=== PATIENT | female | born 1985 | race Hispanic/Latino ===

== ENCOUNTER 2024-08-28 21:12 | Emergency (ER) | payer BC ==
[~2024-08-28] VITALS: Ht 162.6 cm; Wt 72.1 kg
[2024-08-28 21:15] VITALS: PULSE 97; RESP 18; TEMP 97.6
[2024-08-28] MEDS ORDERED: ZITHROMAX250 MG PO (22:06)
[2024-08-28] MEDS: AZITHROMYCIN 250 MG TAB PO ONE (22:20)
[2024-08-28 22:24] VITALS: BP 128/82; PULSE 71; RESP 18; TEMP 98.3; O2SAT 98
== END 2024-08-28 22:25 | disposition home or self-care (01) ==
LOC: FSED 21:42
DX: R05.9 Cough, unspecified (principal); J02.9 Acute pharyngitis, unspecified; R09.89 Other specified symptoms and signs involving the circulatory and respiratory systems; F90.9 Attention-deficit hyperactivity disorder, unspecified type; Z11.52 Encounter for screening for COVID-19; Z87.442 Personal history of urinary calculi
CPT/HCPCS: 0223U; 83518; 87400; 99283